=== PATIENT | female | born 1995 | race Caucasian/White ===

== ENCOUNTER 2017-05-11 12:37 | Emergency (ER) | payer BC, OTHER ==
[2017-05-11 12:47] VITALS: BP 128/65; PULSE 73; RESP 20; TEMP 98.7
--- NOTE | 2017-05-11 12:52 | ED ---
General Adult HPI - General Chief complaint: Extremity Injury, Upper Stated complaint: left elbow Injury Time Seen by Provider: 05/11/17 12:47 Source: patient, RN notes reviewed Mode of arrival: ambulatory Limitations: no limitations - History of Present Illness Initial comments: 22-year-old female presents to the emergency department with a chief complaint of left elbow pain. Patient tripped and fell last night onto her left elbow. She states that she went to bed and this morning she woke up and she states that it hurts to move it but just sitting still she doesn't have pain. Touching doesn't create pain. She states she did not hit her head there is no other injury from the incident. Patient was concerned due to the fact that she' s having hard time with movement so she thought that she should be evaluated. Patient denies any recent fever, chills, shortness of breath, chest pain, back pain, abdominal pain, nausea vomiting, numbness or tingling, dysuria or hematuria, constipation or diarrhea, headaches or visual changes, or any other current symptoms. - Related Data Home Medications Medication Instructions Recorded Confirmed Control 11/08/14 11/08/14 Allergies Allergy/AdvReac Type Severity Reaction Status Date / Time No Known Allergies Allergy Verified 05/11/17 12:46 Review of Systems ROS Statement: Those systems with pertinent positive or pertinent negative responses have been documented in the HPI. ROS Other: All systems not noted in ROS Statement are negative. Past Medical History Past Medical History: No Reported History History of Any Multi-Drug Resistant Organisms: None Reported Past Surgical History: No Surgical Hx Reported Past Psychological History: No Psychological Hx Reported Smoking Status: Never smoker Past Alcohol Use History: None Reported Past Drug Use History: None Reported General Exam - General Exam Comments Initial Comments: General: The patient is awake and alert, in no distress, and does not appear acutely ill. Neck: The neck is supple, there is no tenderness. Cardiovascular: There is a regular rate and rhythm. No murmur, rub or gallop is appreciated. Respiratory: Lungs are clear to auscultation, respirations are non-labored, breath sounds are equal. No wheezes, stridor, rales, or rhonchi. Musculoskeletal: Sensation intact with 2+ pulses of left upper x-ray. Fund motion left shoulder. Patient has pain with range of motion of left elbow with associated swelling. No point bony tenderness no significant bruising noted. Full range motion of left wrist. Neurological: CN II-XII intact, There are no obvious motor or sensory deficits. Coordination appears grossly intact. Speech is normal. Skin: Skin is warm and dry and no rashes or lesions are noted. Psychiatric: Normal mood and affect. Limitations: no limitations Course Vital Signs 05/11/17 12:45 Temperature 98.7 F Pulse Rate 73 Respiratory 20 Rate Blood Pressure 128/65 O2 Sat by Pulse 99 Oximetry Procedures - Orthopedic Splinting/Casting Injury #1 Side: left Upper Extremity Injury Location: long arm, elbow Upper Extremity Immobilizer: sling/shoulder immobilizer, posterior splint (long arm) Medical Decision Making - Medical Decision Making 22-year-old female presents for left elbow pain. At this time x-ray was reviewed and does show a left elbow fracture. This time there is no neurological deficit. At this time patient was placed in a sling. As well as a cast. We discussed follow-up with orthopedic we discussed she needs to contact them today. We discussed return parameters all questions. Patient stated she understood and she is agreement this plan. This time she'll be discharged. - Radiology Data Radiology results: report reviewed, image reviewed Disposition Clinical Impression: Left elbow fracture Disposition: HOME SELF-CARE Condition: Stable Instructions: Elbow Fracture (ED) Additional Instructions: Please use medication as discussed. Please follow up with family doctor if symptoms have not improved over the next two days. Please return to the emergency room if your symptoms increase or worsen or for any other concerns. Referrals: Narayan Chavez MD [STAFF PHYSICIAN] - 1-2 days Time of Disposition: 13:31
--- NOTE | 2017-05-11 13:16 | XR ---
EXAMINATION TYPE: XR elbow complete LT DATE OF EXAM: 05/11/2017 CLINICAL HISTORY: Left elbow pain after fall injury. TECHNIQUE: Frontal, lateral and oblique images of the left elbow are obtained. COMPARISON: None FINDINGS: There are abnormal fat pad sign seen on lateral view. Seen best on lateral view there is a cute oblique linear intra-articular fracture through the olecranon. Joint spaces are preserved. Dista l humerus is intact. Radial head is intact. IMPRESSION: There is acute nondisplaced linear intra-articular fracture through the olecranon with a ssociated hemarthrosis. (Initial encounter closed type post traumatic fracture)
== END 2017-05-11 13:46 | disposition home or self-care (01) ==
LOC: EC 12:37
DX: S52.035A Nondisplaced fracture of olecranon process with intraarticular extension of left ulna, initial encounter for closed fracture (principal); Z79.3 Long term (current) use of hormonal contraceptives; W00.0XXA Fall on same level due to ice and snow, initial encounter; Y92.009 Unspecified place in unspecified non-institutional (private) residence as the place of occurrence of the external cause
CPT/HCPCS: 29105; 99283

== ENCOUNTER 2024-08-09 08:44 | Emergency (ER) | payer BC ==
[2024-08-09 09:13] VITALS: BP 137/91; PULSE 101; RESP 22; TEMP 98.7
--- NOTE | 2024-08-09 09:31 | ED ---
Abdominal Pain HPI - General Chief Complaint: Abdominal Pain Stated Complaint: pelvic pain Time Seen by Provider: 08/09/24 09:08 Source: patient, RN notes reviewed Mode of arrival: ambulatory Limitations: no limitations - History of Present Illness Initial Comments: This is a 29-year-old female with history of PCOS presenting to the emergency department for complaint of left lower pelvic/abdominal pain that has been persistent over the past 12 hours. Patient endorses associated nausea with no reported emesis. She states that she feels that her urinary stream has been mildly decreased over the past 12 hours. Uterine bleeding, hematuria, vaginal d ischarge or odor, dysuria, flank or back pain. States that her last menstrual cycle was in June. No history of and denies chance of . - Related Data Home Medications Medication Instructions Recorded Confirmed Control 11/08/14 11/08/14 Previous Rx's Medication Instructions Recorded Ketorolac [Toradol] 10 mg PO Q8HR #15 tab 08/09/24 Ondansetron Odt [Zofran Odt] 4 mg PO Q8HR PRN #10 tab 08/09/24 Allergies Allergy/AdvReac Type Severity Reaction Status Date / Time No Known Allergies Allergy Verified 08/09/24 09:13 Review of Systems ROS Statement: Those systems with pertinent positive or pertinent negative responses have been documented in the HPI. ROS Other: All systems not noted in ROS Statement are negative. Past Medical History Past Medical History: No Reported History Additional Past Medical History / Comment(s): PCOS History of Any Multi-Drug Resistant Organisms: None Reported Past Surgical History: No Surgical Hx Reported Past Psychological History: No Psychological Hx Reported Smoking Status: Current every day smoker Past Alcohol Use History: None Reported Past Drug Use History: Marijuana General Exam Limitations: no limitations General appearance: alert, in no apparent distress Neck exam: Present: normal inspection. Absent: tenderness, meningismus, lymphadenopathy Respiratory exam: Present: normal lung sounds bilaterally. Absent: respiratory distress, wheezes, rales, rhonchi, stridor Cardiovascular Exam: Present: regular rate, normal rhythm, normal heart sounds. Absent: systolic murmur, diastolic murmur, rubs, gallop, clicks GI/Abdominal exam: Present: soft, tenderness (left lower/pelvic), normal bowel sounds. Absent: distended, guarding, rebound, rigid Extremities exam: Present: normal inspection, full ROM, normal capillary refill. Absent: tenderness, pedal edema, joint swelling, calf tenderness Back exam: Present: normal inspection. Absent: CVA tenderness (R), CVA tenderness (L) Course Vital Signs 08/09/24 09:08 Temperature 98.7 F Pulse Rate 101 H Respiratory 22 Rate Blood Pressure 137/91 O2 Sat by Pulse 98 Oximetry Medical Decision Making - Medical Decision Making Was pt. sent in by a medical professional or institution (, PA, RN ANESTHESIOLOGY, urgent care, hospital, or group home...) When possible be specific @ -No Did you speak to anyone other than the patient for history (EMS, parent, family, police, friend...)? What history was obtained from this source @ -No Did you review nursing and triage notes (agree or disagree)? Why? @ -I reviewed and agree with nursing and triage notes Were old charts reviewed (outside hosp., previous admission, EMS record, old EKG, old radiological studies, urgent care reports/EKG's, group home records)? Report findings @ -No old charts were reviewed Differential Diagnosis (chest pain, altered mental status, abdominal pain women, abdominal pain men, vaginal bleeding, weakness, fever, dyspnea, syncope, headache, dizziness, GI bleed, back pain, seizure, CVA, palpatations, mental health, musculoskeletal)? @ -Differential Abdominal Pain Women: Appendicitis, Cholecystitis, diverticulosis, ischemic bowel, pancreatitis, hepatitis, UTI, gastroenteritis, AAA, incarcerated hernia, bowel obstruction, constipation, inflammatory bowel, hepatitis, peptic ulcer disease, splenic infarction, perforated viscus, vulvitis, ovarian torsion, PID, kidney stone, placenta abruption, this is not meant to be an all-inclusive list EKG interpreted by me (3pts min.). @ -none X-rays interpreted by me (1pt min.). @ -None done CT interpreted by me (1pt min.). @ -None done U/S interpreted by me (1pt. min.). @ -Ultrasound of the pelvis completed transvaginal has an overall suboptimal study with inability to definitively visualize left ovary however there is a near 1.0 cm vague hyperechoic area in the left adnexa with a significantly enlarged left pelvic mass What testing was considered but not performed or refused? (CT, X-rays, U/S, labs)? Why? @ -None What meds were considered but not given or refused? Why? @ -None Did you discuss the management of the patient with other professionals (professionals i.e. , PA, RN ANESTHESIOLOGY, lab, RT, psych nurse, child protective services social worker, intensive care ambulance paramedic, teacher, electoral officer, disease case manager)? Give summary @ -No Was smoking cessation discussed for >3mins.? @ -No Was critical care preformed (if so, how long)? @ -No Were there social determinants of health that impacted care today? How? (Homelessness, low income, unemployed, alcoholism, drug addiction, transportation, low edu. Level, literacy, decrease access to med. care, [facility], rehab)? @ -No Was there de-escalation of care discussed even if they declined (Discuss DNR or withdrawal of care, Hospice)? DNR status @ -No What co-morbidities impacted this encounter? (DM, HTN, Smoking, COPD, CAD, Cancer, CVA, ARF, Chemo, Hep., AIDS, mental health diagnosis, sleep apnea, m orbid obesity)? @ -None Was patient admitted / discharged? Hospital course, mention meds given and r oute, prescriptions, significant lab abnormalities, going to OR and other pertinent info. @ -Discharge. 29 review presented emergency room and left lower abdominal/pelvic pain. Overall patient is well-appearing. Pain is reproducible left lower pelvis with no signs of rebound tenderness or rigidity. Her initial vitals are stable. She is read with dose of Toradol for pain relief. Lab oratory test including CBC, CMP, urinalysis unremarkable. hCG test is negative. Ultrasound suboptimal study with inability to fully visualize left ovary however there is a near 1.0 cm vague hyperechoic in the left adnexa. On reevaluation patient states she is feeling well after Toradol. She is better with outpatient prescription for Toradol and Zofran strict follow-up with adon for further evaluation. Return parameters discussed. Case discussed with Dr. Guerra Undiagnosed new problem with uncertain prognosis? @ -No Drug Therapy requiring intensive monitoring for toxicity (Heparin, Nitro, Insulin, Cardizem)? @ -No Were any procedures done? @ -No Diagnosis/symptom? @ -Pelvic pain, ovarian cyst Acute, or Chronic, or Acute on Chronic? @ -Acute Uncomplicated (without systemic symptoms) or Complicated (systemic symptoms)? @ -Uncomplicated Side effects of treatment? @ -No Exacerbation, Progression, or Severe Exacerbation? @ -No Poses a threat to life or bodily function? How? (Chest pain, [place], VA, pneumonia, PE, COPD, DKA, ARF, appy, cholecystitis, CVA, Diverticulitis, Homicidal, Suicidal, threat to staff... and all critical care pts) @ -No - Lab Data Result diagrams: 08/09/24 09:44 08/09/24 09:44 Lab Results 08/09/24 08/09/24 08/09/24 Range/Units 09:44 09:44 09:45 WBC 5.24 (4.50-10.00) 10*3/uL RBC 4.16 (4.10-5.20) 10*6/uL Hgb 14.0 (12.0-15.0) g/dL Hct 39.2 (37.2-46.3) % MCV 94.2 (80.0-97.0) fL MCH 33.7 H (27.0-32.0) pg MCHC 35.7 (32.0-37.0) g/dL Plt Count 262 (140-440) 10*3/uL MPV 9.2 L (9.5-12.2) fL Immature Gran % (Auto) 0 % Neutrophils % 52.3 % Lymphocytes % 37.6 % Monocytes % 7.8 % Eosinophils % 1.3 % Basophils % 1.0 % Immature Gran # 0.00 (0.00-0.04) 10*3/uL Neutrophils # 2.74 (1.80-7.70) 10*3/uL Lymphocytes # 1.97 (0.90-5.00) 10*3/uL Monocytes # 0.41 (0.20-1.00) 10*3/uL Eosinophils # 0.07 (0.04-0.35) 10*3/uL Basophils # 0.05 (0.00-0.10) 10*3/uL Sodium 137 (137-145) mmol/L Potassium 4.6 (3.5-5.1) mmol/L Chloride 105 (98-107) mmol/L Carbon Dioxide 24 (22-30) mmol/L Anion Gap 8 mmol/L BUN 12 (7-17) mg/dL Creatinine 0.73 (0.52-1.04) mg/dL Est GFR (CKD-EPI)AfAm >90 (>60 ml/min/1.73 sqM) Est GFR (CKD-EPI)NonAf >90 (>60 ml/min/1.73 sqM) Glucose 101 H (74-99) mg/dL Calcium 9.4 (8.4-10.2) mg/dL Total Bilirubin 0.9 (0.2-1.3) mg/dL AST 18 (14-36) U/L ALT 11 (4-34) U/L Alkaline Phosphatase 53 (38-126) U/L Total Protein 7.7 (6.3-8.2) g/dL Albumin 4.5 (3.5-5.0) g/dL Lipase 103 (23-300) U/L Urine Color Urine Appearance (Clear) Urine pH (5.0-8.0) Ur Specific [place] (1.001-1.035) Urine Protein (Negative) Urine Glucose (UA) (Negative) Urine Ketones (Negative) Urine Blood (Negative) Urine Nitrite (Negative) Urine Bilirubin (Negative) Urine Urobilinogen (<2.0) mg/dL Ur Leukocyte Esterase (Negative) Urine WBC (0-5) /hpf Ur Squamous Epith Cells (0-4) /hpf Urine Bacteria (None) /hpf Urine Mucus (None) /hpf Urine HCG, Qual Not Detected (Not Detectd) 08/09/24 Range/Units 09:54 WBC (4.50-10.00) 10*3/uL RBC (4.10-5.20) 10*6/uL Hgb (12.0-15.0) g/dL Hct (37.2-46.3) % MCV (80.0-97.0) fL MCH (27.0-32.0) pg MCHC (32.0-37.0) g/dL Plt Count (140-440) 10*3/uL MPV (9.5-12.2) fL Immature Gran % (Auto) % Neutrophils % % Lymphocytes % % Monocytes % % Eosinophils % % Basophils % % Immature Gran # (0.00-0.04) 10*3/uL Neutrophils # (1.80-7.70) 10*3/uL Lymphocytes # (0.90-5.00) 10*3/uL Monocytes # (0.20-1.00) 10*3/uL Eosinophils # (0.04-0.35) 10*3/uL Basophils # (0.00-0.10) 10*3/uL Sodium (137-145) mmol/L Potassium (3.5-5.1) mmol/L Chloride (98-107) mmol/L Carbon Dioxide (22-30) mmol/L Anion Gap mmol/L BUN (7-17) mg/dL Creatinine (0.52-1.04) mg/dL Est GFR (CKD-EPI)AfAm (>60 ml/min/1.73 sqM) Est GFR (CKD-EPI)NonAf (>60 ml/min/1.73 sqM) Glucose (74-99) mg/dL Calcium (8.4-10.2) mg/dL Total Bilirubin (0.2-1.3) mg/dL AST (14-36) U/L ALT (4-34) U/L Alkaline Phosphatase (38-126) U/L Total Protein (6.3-8.2) g/dL Albumin (3.5-5.0) g/dL Lipase (23-300) U/L Urine Color Colorless Urine Appearance Cloudy H (Clear) Urine pH 6.0 (5.0-8.0) Ur Specific [place] 1.015 (1.001-1.035) Urine Protein Negative (Negative) Urine Glucose (UA) Negative (Negative) Urine Ketones Negative (Negative) Urine Blood Negative (Negative) Urine Nitrite Negative (Negative) Urine Bilirubin Negative (Negative) Urine Urobilinogen <2.0 (<2.0) mg/dL Ur Leukocyte Esterase Trace H (Negative) Urine WBC 3 (0-5) /hpf Ur Squamous Epith Cells 7 H (0-4) /hpf Urine Bacteria Many H (None) /hpf Urine Mucus Few H (None) /hpf Urine HCG, Qual (Not Detectd) Disposition Clinical Impression: Pelvic pain, Ovarian cyst Disposition: HOME SELF-CARE Condition: Good Additional Instructions: Please return to the Emergency Department if symptoms worsen or any other concerns. Prescriptions: Ketorolac [Toradol] 10 mg PO Q8HR #15 tab Ondansetron Odt [Zofran Odt] 4 mg PO Q8HR PRN #10 tab PRN Reason: Nausea Is patient prescribed a controlled substance at d/c from ED?: No [facility]errals: [facility] [NON-STAFF] - 1-2 days (Contact a primary care office to become established with a provider. ) None,Stated [Primary Care Provider] - 1-2 days Forms: Area PCPs Time of Disposition: 11:56
[2024-08-09] MEDS: KETOROLAC 15 MG/ML 1 ML VIAL IVP STA ×2 (09:43→11:23)
[2024-08-09 09:56] LABS: Basophils # (A) 0.05 10*3/uL (0.00-0.10); Eosinophils # (A) 0.07 10*3/uL (0.04-0.35); Eosinophils % (A) 1.3 %; HCT 39.2 % (37.2-46.3); Lymphocytes # (A) 1.97 10*3/uL (0.90-5.00); Lymphocytes % (A) 37.6 %; MCH 33.7 pg (27.0-32.0); MCHC 35.7 g/dL (32.0-37.0); MCV 94.2 fL (80.0-97.0); Mean Platelet Volume 9.2 fL (9.5-12.2); Monocytes # (A) 0.41 10*3/uL (0.20-1.00); Monocytes % (A) 7.8 %; Neutrophils # (A) 2.74 10*3/uL (1.80-7.70); Neutrophils % (A) 52.3 %; Platelet Count 262 10*3/uL (140-440); RBC 4.16 10*6/uL (4.10-5.20); WBC 5.24 10*3/uL (4.50-10.00)
[2024-08-09 10:21] LABS: ALT 11 U/L (4-34); AST 18 U/L (14-36); African American GFR (CKD) >90 (>60 ml/min/1.73 sqM); Albumin 4.5 g/dL (3.5-5.0); Alkaline Phosphatase 53 U/L (38-126); Anion Gap 8 mmol/L; Blood Urea Nitrogen 12 mg/dL (7-17); Calcium 9.4 mg/dL (8.4-10.2); Carbon Dioxide 24 mmol/L (22-30); Chloride 105 mmol/L (98-107); Glucose 101 mg/dL (74-99); Lipase 103 U/L (23-300); Non-African American GFR(CKD) >90 (>60 ml/min/1.73 sqM); Potassium 4.6 mmol/L (3.5-5.1); Sodium 137 mmol/L (137-145); Total Bilirubin 0.9 mg/dL (0.2-1.3); Total Protein 7.7 g/dL (6.3-8.2)
[2024-08-09 10:32] LABS: Appearance,Urine Cloudy (Clear); Bacteria,Urine Many /hpf; Bilirubin,Urine Negative (Negative); Blood,Urine Negative (Negative); Color,Urine Colorless; Glucose,Urine (UA) Negative (Negative); Ketones,Urine Negative (Negative); Leukocyte Esterase,Urine Trace (Negative); Mucus,Urine Few /hpf; Nitrite,Urine Negative (Negative); Protein,Urine Negative (Negative); Specific Gravity,Urine 1.015 (1.001-1.035); Squamous Epithelial Cell,Urine 7 /hpf (0-4); Urobilinogen,Urine <2.0 mg/dL (<2.0); WBC,Urine 3 /hpf (0-5)
--- NOTE | 2024-08-09 11:18 | US ---
EXAMINATION TYPE: US pelvis complete transvag DATE OF EXAM: 08/09/2024 COMPARISON: NONE CLINICAL INDICATION: Female, 29 years old with history of Left lower pelvic pain, HX PCOS, r/o torsio n; pt complains of Left sided lower pelvic pain since last night TECHNIQUE: Transvaginal (TV) and Transabdominal (TA) . Transabdominal grayscale sonographic images of the pelvis were acquired. Transvaginal sonographic im ages were medically necessary to better assess the following anatomy: Doppler imaging: Color Doppler Images were obtained. Spectral doppler images were obtained. FINDINGS: Pt was willing to do TV as well as TA due to unable to visualize Lt ovary transabdominally Date of LMP: 06/21/2024 EXAM MEASUREMENTS: Uterus: 6.7x3.4x4.0cm Endometrial Stripe: 0.8cm Right Ovary: 1.9x1.7x2.4cm ?Left Ovary: 1.3x0.9x0.9cm difficult to visualize due to severe overlying bowel limited exam due to overlying bowel/gas 1. Uterus: Anteverted wnl 2. Endometrium: wnl 3. Right Ovary: wnl 4. Left Ovary: ? Lt Ov, not fully confident in Lt ovary, 5. Bilateral Adnexa: wnl 6. Posterior cul-de-sac: ?minimal FF seen IMPRESSION: Suboptimal study. Unable to definitively visualize left ovary. A near 1.0 cm vague hypoec hoic area in the left adnexa is present. No significantly enlarged left pelvic masses. O-RADS 2021 [email or web address] [facility], , 08/09/2024 11:16 AM
== END 2024-08-09 12:10 | disposition home or self-care (01) ==
LOC: EC 08:44
DX: R10.2 Pelvic and perineal pain (principal); N83.202 Unspecified ovarian cyst, left side; N89.8 Other specified noninflammatory disorders of vagina; F17.200 Nicotine dependence, unspecified, uncomplicated
CPT/HCPCS: 36415; 80053; 83690; 85025; 81001; 81025; 93975; 76856; 76830; 99284; 96374; 96376; J1885